=== PATIENT | male | born 1950 | race Caucasian/White ===

== ENCOUNTER 2018-05-21 10:24 | Emergency (ER) | payer MEDICARE, OTHER ==
[2018-05-21] MEDS ORDERED: Aspirin 81 MG Tab.Chew PO ONE ×2 (10:39→10:40)
[2018-05-21] MEDS ORDERED: Heparin Sodium/0.45% NaCl 25,000 UNITS/500 ML BAG IV SCH (10:45)
--- NOTE | 2018-05-21 10:55 | EDM.PDOC ---
ED HPI GENERAL MEDICAL PROBLEM - General Chief Complaint: Chest Pain Stated Complaint: CHEST PAIN Time Seen by Provider: 05/21/18 10:24 Source of Information: Reports: Patient, Family History Limitations: Reports: No Limitations - History of Present Illness INITIAL COMMENTS - FREE TEXT/NARRATIVE: 68 y.o.w.m with a H/O HTN and high cholesterol, walked to the ED due to SSCP off and on for 2 days. Pt took baby ASA and his BP meds. in am. Pt rated his C /P 10 on arrival. No N/V/D. no Dizziness, no diaphoresis, no SOB. 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 chest Pain Score (Numeric/FACES): 6 - Related Data Allergies Allergy/AdvReac Type Severity Reaction Status Date / Time No Known Allergies Allergy Verified 05/21/18 10:42 Home Meds: Home Meds Aspirin 81 mg PO DAILY 05/21/18 [History] ED ROS GENERAL - Review of Systems Review Of Systems: See Below Constitutional: Reports: No Symptoms HEENT: Reports: No Symptoms Respiratory: Reports: No Symptoms Cardiovascular: Reports: Chest Pain (05/01) Endocrine: Reports: No Symptoms GI/Abdominal: Reports: No Symptoms : Reports: No Symptoms Musculoskeletal: Reports: No Symptoms Skin: Reports: No Symptoms Neurological: Reports: No Symptoms Psychiatric: Reports: No Symptoms Hematologic/Lymphatic: Reports: No Symptoms Immunologic: Reports: No Symptoms ED EXAM, GENERAL - Physical Exam Exam: See Below Exam Limited By: No Limitations General Appearance: Alert, WD/WN, Moderate Distress Eye Exam: Bilateral Eye: Normal Inspection Ears: Normal External Exam Ear Exam: Bilateral Ear: Auricle Normal Nose: Normal Inspection, Normal Mucosa, No Blood Throat/Mouth: Normal Inspection, Normal Lips, Normal Voice, No Airway Compromise Head: Atraumatic, Normocephalic Neck: Normal Inspection, Supple, Non-Tender, Full Range of Motion Respiratory/Chest: No Respiratory Distress, Lungs Clear, Normal Breath Sounds Cardiovascular: Normal Peripheral Pulses, Regular Rate, Rhythm, No Edema, No Gallop, No Murmur, No Rub Peripheral Pulses: 1+: Brachial (R) GI/Abdominal: Normal Bowel Sounds, Soft, Non-Tender, No Organomegaly, No Abnormal Bruit, No Mass (Male) Exam: Deferred Rectal (Males) Exam: Deferred Back Exam: Normal Inspection, Full Range of Motion Extremities: Normal Inspection, Normal Range of Motion, Non-Tender, No Pedal Edema Neurological: Alert, Oriented, CN II-XII Intact, Normal Cognition, Normal Gait Psychiatric: Normal Affect, Normal Mood Skin Exam: Warm, Dry, Intact, Normal Color, No Rash Lymphatic: No Adenopathy EKG INTERPRETATION EKG Date: 05/21/18 Time: 10:30 Rhythm: NSR Rate (Beats/Min): 80 [place]: Normal P-Wave: Present QRS: Normal ST-T: Elevated (inferior leads with hyperacute T waves) QT: Normal Comparison: NA - No Prior EKG Course - Vital Signs Text/Narrative:: 68 y.o.w.m with a H/O HTN and high cholesterol, walked to the ED due to SSCP off and on for 2 days. Pt took baby ASA and his BP meds. in am. Pt rated his C /P 6/10 on arrival. No N/V/D. no Dizziness, no diaphoresis, no SOB. No other acute medical issues BP 184/93 pulse 73 RR 15 Temp 98.8 Pulse ox 100% PE: 68 y.o.w.m with acute SSCP Imaging: not done Labs: Troponin 2.697 HGB 16.5 HCT 48.2 INR 0.94 ECG: Acute ST elevation at inf lead with recip ST depr. V2, Hyper acute T waves lat leads Impression:Acute STEMI, HTN emergency Tx: ASA, Heperin drip with bolus, NTG drip, Labetolol 10.32 am Consultation: Dr. White, Cement Worker, [facility]: Agreed with Tx send to [facility], no delay Reexam: Improved, Pain 1/10 BP on transfer 165/81 (before Labetolol was given) Plan: transfer pt to the [facility] cardiac catheterization technologist Last Recorded V/S: Last Vital Signs Temp 37.1 C 05/21/18 10:24 Pulse 70 05/21/18 10:24 Resp 17 05/21/18 10:24 BP 188/98 H 05/21/18 11:04 Pulse Ox 100 05/21/18 10:24 - Orders/Labs/Meds Labs: Laboratory Tests 05/21/18 05/21/18 05/21/18 Range/Units 10:45 10:45 10:45 WBC 5.2 (4.5-12.0) X10-3/uL RBC 4.86 (4.30-5.75) x10(6)uL Hgb 16.3 H (11.5-15.5) g/dL Hct 48.2 (30.0-51.3) % MCV 99.2 H (80-96) fL MCH 33.5 (27.7-33.6) pg MCHC 33.8 (32.2-35.4) g/dL RDW 12.0 (11.5-15.5) % Plt Count 145 (125-369) X10(3)uL MPV 9.0 (7.4-10.4) fL Neut % (Auto) 64.4 (46-82) % Lymph % (Auto) 19.0 (13-37) % Phelps % (Auto) 10.8 (4-12) % Eos % (Auto) 3 (1.0-5.0) % Baso % (Auto) 3 H (0-2) % Neut # (Auto) 3.3 (1.6-8.3) # Lymph # (Auto) 1.0 (0.6-5.0) # Phelps # (Auto) 0.6 (0.0-1.3) # Eos # (Auto) 0.1 (0.0-0.8) # Baso # (Auto) 0.2 (0.0-0.2) # PT 9.1 (8.7-11.1) INR 0.94 (0.89-1.13) Sodium 134 L (135-145) mmol/L Potassium 4.1 (3.5-5.3) mmol/L Chloride 100 (100-110) mmol/L Carbon Dioxide 27 (21-32) mmol/L BUN 11 (7-18) mg/dL Creatinine 0.8 (0.70-1.30) mg/dL Est Cr Clr Drug Dosing TNP Estimated GFR (MDRD) > 60 (>60) BUN/Creatinine Ratio 13.8 (9-20) Glucose 92 (80-116) mg/dL Calcium 8.7 (8.6-10.2) mg/dL Troponin I (<0.017-0.056) ng/mL 05/21/18 Range/Units 10:45 WBC (4.5-12.0) X10-3/uL RBC (4.30-5.75) x10(6)uL Hgb (11.5-15.5) g/dL Hct (30.0-51.3) % MCV (80-96) fL MCH (27.7-33.6) pg MCHC (32.2-35.4) g/dL RDW (11.5-15.5) % Plt Count (125-369) X10(3)uL MPV (7.4-10.4) fL Neut % (Auto) (46-82) % Lymph % (Auto) (13-37) % Phelps % (Auto) (4-12) % Eos % (Auto) (1.0-5.0) % Baso % (Auto) (0-2) % Neut # (Auto) (1.6-8.3) # Lymph # (Auto) (0.6-5.0) # Phelps # (Auto) (0.0-1.3) # Eos # (Auto) (0.0-0.8) # Baso # (Auto) (0.0-0.2) # PT (8.7-11.1) INR (0.89-1.13) Sodium (135-145) mmol/L Potassium (3.5-5.3) mmol/L Chloride (100-110) mmol/L Carbon Dioxide (21-32) mmol/L BUN (7-18) mg/dL Creatinine (0.70-1.30) mg/dL Est Cr Clr Drug Dosing Estimated GFR (MDRD) (>60) BUN/Creatinine Ratio (9-20) Glucose (80-116) mg/dL Calcium (8.6-10.2) mg/dL Troponin I 2.694 H* (<0.017-0.056) ng/mL Meds: Medications Discontinued Medications Generic Name Dose Route Start Last Admin Trade Name Keshawnq PRN Reason Stop Dose Admin Aspirin 324 mg 05/21/18 10:39 05/21/18 11:33 Aspirin PO 05/21/18 10:40 Not Given ONETIME ONE Aspirin 243 mg 05/21/18 10:40 05/21/18 10:40 Aspirin PO 05/21/18 10:41 243 mg ONETIME ONE Administration Heparin Sodium (Porcine) 4,000 units 05/21/18 11:00 05/21/18 10:55 Heparin Sodium IVPUSH 05/21/18 11:01 4,000 units ONETIME ONE Administration Heparin Sodium/Sodium Chloride 25,000 units in 500 mls @ 20.088 mls/hr 10:45 05/21/18 11:00 Heparin 25,000 Units In 1/2 Ns 500 Ml IV 9.3 units/kg/hr TITRATE OLGA 20.088 mls/hr Administration Protocol 9.3 UNITS/KG/HR Nitroglycerin/Dextrose 25 mg in 250 mls @ 6 mls/hr 05/21/18 11:00 05/21/18 11 :04 Nitroglycerin 25 Mg/D5w 250 Ml IV 10 mcg/min TITRATE OLGA 6 mls/hr Administration Protocol 10 MCG/MIN Sodium Chloride 1,000 mls @ 100 mls/hr 05/21/18 11:00 05/21/18 11:00 Normal Saline IV 100 mls/hr ASDIRECTED OLGA Administration Labetalol HCl 20 mg 05/21/18 11:04 05/21/18 11:08 Normodyne IVPUSH 05/21/18 11:05 20 mg ONETIME ONE Administration Protocol Labetalol HCl Confirm 05/21/18 11:07 05/21/18 11:40 Normodyne Administered 05/21/18 11:08 Not Given Dose 20 mg .ROUTE .STK-MED ONE Nitroglycerin 0.4 mg 05/21/18 10:56 05/21/18 10:56 Nitrostat SL 05/21/18 10:57 0.4 mg ONETIME ONE Administration Departure - Departure Time of Disposition: 11:15 Disposition: DC/Tfer to Acute Hospital 02 Reason for Transfer *Q: Other (No dental detail representative) Condition: Fair Clinical Impression: STEMI (ST elevation myocardial infarction) Referrals: Curtis Rader MD [Primary Care Provider] - Forms: ED Department Discharge
[2018-05-21] MEDS ORDERED: Nitroglycerin 0.4 MG Tab.SL SL ONE (10:56)
[2018-05-21] MEDS ORDERED: Sodium Chloride 0.9% 1,000 ML IV SCH (11:00)
[2018-05-21] MEDS ORDERED: Nitroglycerin/D5W 25 MG/250 ML BOTTLE IV SCH (11:00)
[2018-05-21] MEDS ORDERED: Heparin Sodium 5,000 Units/ML Vial IVPUSH ONE (11:00)
[2018-05-21] MEDS ORDERED: Labetalol 20 MG/4 ML Syringe IVPUSH ONE (11:04)
[2018-05-21] MEDS ORDERED: Labetalol 20 MG/4 ML Syringe ONE (11:07)
== END 2018-05-21 11:16 ==
LOC: FB.ED 10:24
DX: I21.19 ST elevation (STEMI) myocardial infarction involving other coronary artery of inferior wall (principal); I16.0 Hypertensive urgency; I10 Essential (primary) hypertension; Z79.82 Long term (current) use of aspirin
CPT/HCPCS: 36415; 80048; 84484; 85025; 85610; 93005; 93010; 96365; 96375; 96376; 99285; A9270-GY; J1644; J7030

== ENCOUNTER 2021-08-28 12:02 | Emergency (ER) | payer MEDICARE, OTHER ==
[2021-08-28] MEDS ORDERED: Sodium Chloride 0.9% 10 ML Syringe FLUSH PRN (12:04)
[2021-08-28] MEDS ORDERED: Morphine 2 MG/ML SYRINGE IVPUSH ONE (12:40)
[2021-08-28] MEDS ORDERED: Iopamidol 755 Mg/ML 100 ML Bottle IV ONE (12:58)
[2021-08-28] MEDS ORDERED: Ketorolac 30 MG/ML SDV IVPUSH STA (14:34)
--- NOTE | 2021-08-28 14:34 | EDM.PDOC ---
ED HPI GENERAL MEDICAL PROBLEM - General Chief Complaint: Neuro Symptoms/Deficits Time Seen by Provider: 08/28/21 12:02 Source of Information: Reports: Patient History Limitations: Reports: No Limitations - History of Present Illness INITIAL COMMENTS - FREE TEXT/NARRATIVE: Patient presented to the ED because of Left temporal headache for 3 days. It's throbbing,08/31. there is no associated double or blurry vision. This morning at about 0730 he noticed a left facial droop,there is no slurring of speech, motor or sensory deficits. - Related Data Allergies Allergy/AdvReac Type Severity Reaction Status Date / Time No Known Allergies Allergy Verified 05/21/18 10:42 Home Meds: Home Meds Aspirin 81 mg PO DAILY 05/21/18 [History] Acetaminophen/HYDROcodone [HYDROcodone-Acetaminophen 5-325 MG *] 1 tab PO Q4H PRN #10 each 08/28/21 [Rx] Acyclovir 400 mg PO TID #30 tablet 08/28/21 [Rx] predniSONE [Prednisone] 20 mg PO DAILY #10 tablet 08/28/21 [Rx] Past Medical History Cardiovascular History: Reports: Hypertension Respiratory History: Reports: PE Gastrointestinal History: Reports: Other (See Below) Other Gastrointestinal History: heartburn Social & Family History - Family History Family Medical History: No Pertinent Family History - Tobacco Use Tobacco Use Status *Q: Never Tobacco User - Caffeine Use Caffeine Use: Reports: Coffee - Recreational Drug Use Recreational Drug Use: No ED ROS GENERAL - Review of Systems Review Of Systems: See Below Constitutional: Reports: No Symptoms HEENT: Reports: No Symptoms Respiratory: Reports: No Symptoms Cardiovascular: Reports: No Symptoms Endocrine: Reports: No Symptoms GI/Abdominal: Reports: No Symptoms : Reports: No Symptoms Musculoskeletal: Reports: No Symptoms Skin: Reports: No Symptoms Neurological: Reports: Headache, Other (facial droop) Psychiatric: Reports: No Symptoms Hematologic/Lymphatic: Reports: No Symptoms Immunologic: Reports: No Symptoms ED EXAM, NEURO - Physical Exam Exam: See Below Exam Limited By: No Limitations General Appearance: Alert, No Apparent Distress Eye Exam: Bilateral Eye: PERRL Ears: Normal External Exam, Normal Canal, Hearing Grossly Normal Nose: Normal Inspection, Normal Mucosa, No Blood Throat/Mouth: Normal Inspection, Normal Lips, Normal Teeth, Normal Gums, Normal Oropharynx, Normal Voice Head Exam: Atraumatic, Normocephalic, Other (left facial droop) Neck: Normal Inspection, Supple, Non-Tender, Full Range of Motion Respiratory/Chest: No Respiratory Distress, Lungs Clear, Normal Breath Sounds, No Accessory Muscle Use Cardiovascular: Normal Peripheral Pulses GI/Abdominal: Normal Bowel Sounds, Soft, Non-Tender, No Organomegaly, No Distention, No Abnormal Bruit, No Mass Neurological: Alert, Normal Mood/Affect, Normal Dorsiflexion, CN II-XII Intact, Normal Plantar Flexion, Normal Gait, Normal Reflexes, No Motor/Sensory Deficits, Oriented x 3 Back Exam: Normal Inspection, Full Range of Motion Extremities: Normal Inspection, Normal Range of Motion, Non-Tender, No Pedal Edema, Normal Capillary Refill Psychiatric: Normal Affect Skin Exam: Warm #1 Interpretation EKG Date: 08/28/21 Time: 12:53 Rhythm: NSR Rate (Beats/Min): 81 [place]: Normal P-Wave: Present QRS: Normal ST-T: Normal QT: Normal GA/PQ Interval: 190 Comparison: Change From Previous EKG EKG Interpretation Comments: NSR LAE Course - Vital Signs Text/Narrative:: Lab/EKG/CXR/ Head CT result was reviewed and discussed with patient Toradol 15 mg IV x1 Morphine 2 mg IV x1 IHSS-1 Case was discussed with Dr Elliott-Neuro @ [facility] Last Recorded V/S: Last Vital Signs Temp 36.8 C 08/28/21 12:02 Pulse 84 08/28/21 12:02 Resp 16 08/28/21 12:02 BP 164/99 H 08/28/21 12:02 Pulse Ox 97 08/28/21 12:02 - Orders/Labs/Meds Orders: Active Orders 24 hr Category Date Time Status Saline Lock Insert [OM.PC] Routine Oth 08/28/21 12:04 Ordered EKG 12 Lead [EK] Routine Ther 08/28/21 12:04 Ordered Labs: Laboratory Tests 08/28/21 08/28/21 08/28/21 Range/Units 12:23 12:23 12:23 WBC 3.6 (3.2-10.1) x10-3/uL RBC 4.49 (3.90-5.90) x10(6)uL Hgb 15.0 (12.9-17.7) g/dL Hct 43.8 (38.3-50.1) % MCV 97.5 (80.8-98.7) fL MCH 33.4 H (27.0-33.3) pg MCHC 34.3 (28.7-35.3) g/dL RDW 12.8 (12.4-15.0) % Plt Count 104 L (117-477) x10(3)uL MPV 8.6 (6.7-11.0) fL Neut % (Auto) 70.1 (40.3-71.8) % Lymph % (Auto) 14.2 L (15.8-45.3) % [place] % (Auto) 15.2 (5.5-15.2) % Eos % (Auto) 0.1 (0.1-6.8) % Baso % (Auto) 0.4 (0.3-3.8) % Neut # (Auto) 2.5 (1.7-6.9) x10-3/uL Lymph # (Auto) 0.5 (0.5-4.5) x10-3/uL [place] # (Auto) 0.5 (0.0-1.2) x10-3/uL Eos # (Auto) 0.0 (0.0-0.6) x10-3/uL Baso # (Auto) 0.0 (0.0-0.3) x10-3/uL PT 9.7 (9.0-11.1) sec INR 0.89 L (1.00-1.24) APTT 28.1 (24.4-33.2) SECONDS Sodium 133 L (135-145) mmol/L Potassium 3.6 (3.5-5.3) mmol/L Chloride 97 L (100-110) mmol/L Carbon Dioxide 25 (21-32) mmol/L BUN 12 (7-18) mg/dL Creatinine 0.8 (0.70-1.30) mg/dL Est Cr Clr Drug Dosing TNP Estimated GFR (MDRD) > 60 (>60) BUN/Creatinine Ratio 15.0 (9-20) Glucose 127 H (80-116) mg/dL Calcium 8.4 L (8.6-10.2) mg/dL Total Bilirubin 0.4 (0.1-1.3) mg/dL AST 31 H (5-25) IU/L ALT 34 (12-36) U/L Alkaline Phosphatase 69 (56-112) IU/L Troponin I (4.0-60.3) pg/mL Total Protein 6.8 (6.0-8.0) g/dL Albumin 3.4 (3.2-4.6) g/dL Globulin 3.4 g/dL Albumin/Globulin Ratio 1.0 08/28/21 Range/Units 12:23 WBC (3.2-10.1) x10-3/uL RBC (3.90-5.90) x10(6)uL Hgb (12.9-17.7) g/dL Hct (38.3-50.1) % MCV (80.8-98.7) fL MCH (27.0-33.3) pg MCHC (28.7-35.3) g/dL RDW (12.4-15.0) % Plt Count (117-477) x10(3)uL MPV (6.7-11.0) fL Neut % (Auto) (40.3-71.8) % Lymph % (Auto) (15.8-45.3) % [place]ingo % (Auto) (5.5-15.2) % Eos % (Auto) (0.1-6.8) % Baso % (Auto) (0.3-3.8) % Neut # (Auto) (1.7-6.9) x10-3/uL Lymph # (Auto) (0.5-4.5) x10-3/uL Mingo # (Auto) (0.0-1.2) x10-3/uL Eos # (Auto) (0.0-0.6) x10-3/uL Baso # (Auto) (0.0-0.3) x10-3/uL PT (9.0-11.1) sec INR (1.00-1.24) APTT (24.4-33.2) SECONDS Sodium (135-145) mmol/L Potassium (3.5-5.3) mmol/L Chloride (100-110) mmol/L Carbon Dioxide (21-32) mmol/L BUN (7-18) mg/dL Creatinine (0.70-1.30) mg/dL Est Cr Clr Drug Dosing Estimated GFR (MDRD) (>60) BUN/Creatinine Ratio (9-20) Glucose (80-116) mg/dL Calcium (8.6-10.2) mg/dL Total Bilirubin (0.1-1.3) mg/dL AST (5-25) IU/L ALT (12-36) U/L Alkaline Phosphatase (56-112) IU/L Troponin I 7.5 (4.0-60.3) pg/mL Total Protein (6.0-8.0) g/dL Albumin (3.2-4.6) g/dL Globulin g/dL Albumin/Globulin Ratio Meds: Medications Discontinued Medications Generic Name Dose Route Start Last Admin Trade Name Freq PRN Reason Stop Dose Admin Iopamidol 85 ml 08/28/21 12:58 08/28/21 13:13 Iopamidol 755 Mg/Ml 100 Ml Bottle IV 08/28/21 12:59 85 ml . DIRECTED ONE Administration Ketorolac Tromethamine 15 mg 08/28/21 14:34 08/28/21 14:30 Ketorolac 30 Mg/Ml Sdv IVPUSH 08/28/21 14:35 15 mg NOW STA Administration Morphine Sulfate 2 mg 08/28/21 12:40 08/28/21 12:55 Morphine 2 Mg/Ml Syringe IVPUSH 08/28/21 12:41 2 mg ONETIME ONE Administration Sodium Chloride 10 ml 08/28/21 12:04 Sodium Chloride 0.9% 10 Ml Syringe FLUSH ASDIRECTED PRN Keep Vein Open Departure - Departure Time of Disposition: 14:40 Disposition: Home, Self-Care 01 Condition: Good Clinical Impression: Facial nerve palsy - Discharge Information Prescriptions: Acyclovir 400 mg PO TID #30 tablet Acetaminophen/HYDROcodone [HYDROcodone-Acetaminophen 5-325 MG *] 1 tab PO Q4H PRN #10 each PRN Reason: Pain predniSONE [Prednisone] 20 mg PO DAILY #10 tablet Instructions: Hopper Palsy, Adult Referrals: Curtis Rader MD [Primary Care Provider] - Forms: ED Department Discharge Additional Instructions: Please read discharge instructions on facial nerve palsy Acyclovir 400 mg 3 times daily for 10 days Prednisone 20 mg once daily for 10 days Hydrocodone 5mg, 1 tablet every 4-6 hours as needed for pain Follow up as needed Sepsis Event Note (ED) - Evaluation Sepsis Screening Result: No Definite Risk - My Orders Last 24 Hours: My Active Orders 08/28/21 12:04 Saline Lock Insert [OM.PC] Routine EKG 12 Lead [EK] Routine - Assessment/Plan Last 24 Hours: My Active Orders 08/28/21 12:04 Saline Lock Insert [OM.PC] Routine EKG 12 Lead [EK] Routine
--- NOTE | 2021-08-28 14:41 | CT ---
CT HEAD WITHOUT CONTRAST INDICATION: Left facial droop, headache behind left ear for three days. Facial droop is new today. TECHNIQUE: Spiral 3.75 mm axial sections were obtained through the brain without contrast with axial, sagittal and coronal reconstructions 08/28/21 - no comparisons. Total exam DLP was 1373.47 mGy/cm. FINDINGS: Thickening of the lining of the left maxillary antrum is noted with retention cysts at the left maxillary antrum and one in the right maxillary antrum. Thickening of the linings of multiple ethmoidal air cells is noted with thickening of the linings of the frontal air cells, right greater than left. The findings may represent sinusitis. The mastoid air cells appear to be well aerated. Degenerative changes are noted at the odontoatlantian joint of a moderate degree. No cranial abnormalities are seen. The orbits appear to be intact. No shift of midline structures or significant ventricular abnormalities were identified. The right lateral ventricle is slightly more prominent than the left which could be an anatomic variation. Calcifications are noted in the vertebral and internal carotid arteries. Calcifications are also suggested in medial cerebral arteries, especially on the right with relatively high density. This can sometimes be seen in thrombotic CVAs. Abnormal decreased density is noted in the white matter posterior parietal occipital area and left parietal white matter and to a lesser extent right parietal white matter anteriorly. The corrigan/white matter interface appears to be fairly intact - no definite cortical abnormality of an acute nature could be identified. A definite acute intracranial abnormality was not seen - no bleeding site or hematoma was noted. IMPRESSION: 1. No definite acute intracranial abnormality. However, the right middle cerebral branches to the area of the insula - temporal lobe is relatively prominent in density which can be seen with acute thrombotic CVA. There is also noted a moderate degree of white matter disease, which may be on the basis of microvascular disease and be chronic. However, acute disease superimposed cannot be excluded. No bleeding site or hematoma was seen. 2. Sinusitis is suggested. Report was called to Dr. Mandel at 1223 hours 08/28/21. [facility]
--- NOTE | 2021-08-28 14:43 | CR ---
INDICATION: CVA symptoms, facial droop. CHEST, ONE VIEW: Two AP portable upright views of the chest were obtained 08/28/21 - no comparisons. There appears to be some patchy infiltration at the midlung field and lower lung field on the left and lower lung field on the right. This appearance could also be on the basis of fibrosis versus pneumonia. This should be correlated clinically. The lungs appear to be hyperaerated. The heart did not appear grossly enlarged. Overlying EKG leads noted. Degenerative changes noted in the spine. IMPRESSION: 1. Possible patchy infiltration in the lower lung tate and left midlung field versus fibrosis - correlate clinically. 2. Possible COPD. 3. DJD spine. MTDD
--- NOTE | 2021-08-28 14:48 | CT ---
INDICATION: CVA symptoms. CT-ANGIOGRAPHY OF THE HEAD WITH CONTRAST: Spiral 1.25 mm axial sections were obtained through the brain with 85 mL Isovue-370 at 4 mL/second with axial, sagittal and coronal reconstructions 08/28/21 and compared with noncontrast study dated 08/28/21. TOTAL EXAM DLP: 247.00 mGy/cm. The common carotid arteries showed evidence of minimal plaque inferiorly on the right. The left internal carotid artery was more tortuous than the right at the base of the skull, but did not appear to be significantly narrowed. There is plaque in the internal carotid arteries bilaterally, intracranially, with an appearance of mild stenosis. No significant-appearing stenosis was seen in the internal carotids or middle cerebral or vertebral circulations. The posterior circulation showed evidence of calcifications in the vertebral arteries with no gross stenosis present. IMPRESSION: Although atherosclerotic changes are present, no gross or significant degree of stenosis was shown to be present and no intracranial thrombi were seen. Report was called to Dr. Mandel at 1347 hours, 08/28/21. [facility]
== END 2021-08-28 14:50 | disposition home or self-care (01) ==
LOC: FB.ED 12:02
DX: G51.0 Bell's palsy (principal); I10 Essential (primary) hypertension; Z79.82 Long term (current) use of aspirin; Z79.899 Other long term (current) drug therapy
CPT/HCPCS: 36415; 70450; 70496; 71045; 80053; 84484; 85025; 85610; 85730; 93005; 96374; 96375; 99284-25; J1885; J2270; Q9967